=== PATIENT | female | born 1960 | race African-American/Black ===

== ENCOUNTER 2017-01-14 11:42 | Emergency (ER) | payer OTHER ==
[2017-01-14 11:51] VITALS: BP 117/51; PULSE 69; TEMP 98.3; BMI 29.7
[2017-01-14] MEDS ORDERED: IBUPROFEN 400 MG TABLET (FP) PO ONE ×2 (12:04→12:10)
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
== END 2017-01-14 12:40 | disposition home or self-care (01) ==
LOC: FER 11:42
DX: S33.5XXA Sprain of ligaments of lumbar spine, initial encounter (principal); V43.52XA Car driver injured in collision with other type car in traffic accident, initial encounter; Y93.89 Activity, other specified; Y92.410 Unspecified street and highway as the place of occurrence of the external cause
CPT/HCPCS: 99283-25

== ENCOUNTER 2023-07-09 04:35 | Day surgery (SDC) | payer BC ==
[2023-07-07 16:13] VITALS: BMI 28.5
[2023-07-09 09:32] VITALS: BP 117/60; PULSE 56; RESP 18; TEMP 97.3
== END 2023-07-09 10:15 | disposition home or self-care (01) ==
LOC: JASU-ENDO 04:35
PROVIDERS: ATTEND Student in an Organized Health Care Education/Training Program
PROC: 0DJD8ZZ Inspection of Lower Intestinal Tract, Via Natural or Artificial Opening Endoscopic (ICD-10-PCS; principal; 2023-07-09 08:00)
DX: K57.30 Diverticulosis of large intestine without perforation or abscess without bleeding (principal); Z86.010 Personal history of colon polyps